=== PATIENT | male | born 1975 | race Caucasian/White ===

== ENCOUNTER → 2020-08-11 13:56 | Outpatient (CLI) | payer BC, SELFPAY ==
--- NOTE | ~2020-08-11 | XR_ITS ---
EXAMINATION: XR lumbar spine 2-3V EXAM DATE: 08/11/2020 14:22 INDICATION: Chronic pain syndrome. TECHNIQUE: Lumber spine frontal, lateral, lateral L5-S1 projections for interpretation. Comparison is made to prior examination from 06/26/2017. FINDINGS: Moderate to severe disc disease L4-S1. There is moderate L4-5 and L5-S1 facet arthropathy, mild to moderate above this level. Mild to moderate disc disease at L1-2, mild at L2-3 and L3-4. The re is approximately 2 mm retrolisthesis at all lumbar levels. Mild lumbar levoscoliosis. Sacrum, sacr oiliac joints, sacral arcuate lines are intact. Paraspinal soft tissue is unremarkable. IMPRESSION: 1. L4-S1 moderate to severe disc disease. 2. Moderate lower lumbar facet arthropathy. 3. Mild levoscoliosis. Reviewed, dictated and finalized at location A.
--- NOTE | ~2020-08-11 | XR_ITS ---
XR cervical spine 4-5V DATE: 08/11/2020 14:22 INDICATION: Chronic neck pain TECHNIQUE: Standing AP, lateral, swimmer's, open-mouth views COMPARISON: 07/18/2014 cervical spine FINDINGS: There is reversal of cervical curvature. There is mild dextroscoliosis of the cervical and upper thoracic spine. There is moderate degenerative disc disease at C3-4. There is moderately severe degenerative disc disease at C4-5, C5-6 and C6-7, with prominent posterior spurring at C4-5 and C6-7. Uncovertebral joint spurring is noted at C4-5, C5-6 and C6-7 in particular. C1 and C2 are normally aligned and the odontoid process is intact. No fracture or dislocation or lock ed facet or prevertebral soft tissue swelling. Incidentally noted is azygos lobe, normal variant. IMPRESSION: Reversal cervical curvature and mild dextroscoliosis Multilevel degenerative disc disease and uncovertebral joint spurring of the mid and lower cervical s pine, increased in severity since 07/18/2014 Reviewed, dictated and finalized at location A. IMPRESSION: Reversal cervical curvature and mild dextroscoliosis Multilevel degenerative disc disease and uncovertebral joint spurring of the mi d and lower cervical spine, increased in severity since 07/18/2014
== END ==
PROVIDERS: PCP Internal Medicine; Visit Provider Pain Medicine Interventional Pain Medicine
DX: M54.12 Radiculopathy, cervical region (principal); G89.4 Chronic pain syndrome; Z13.89 Encounter for screening for other disorder; M51.37 Other intervertebral disc degeneration, lumbosacral region; M50.30 Other cervical disc degeneration, unspecified cervical region
CPT/HCPCS: 72050; 72100

== ENCOUNTER → 2020-09-16 15:23 | Outpatient (CLI) | payer BC, SELFPAY ==
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
== END ==
PROVIDERS: Visit Provider Pain Medicine Interventional Pain Medicine
DX: M47.22 Other spondylosis with radiculopathy, cervical region (principal); Z13.89 Encounter for screening for other disorder
CPT/HCPCS: 72141

== ENCOUNTER → 2021-12-16 10:27 | Outpatient (CLI) | payer BC, SELFPAY ==
--- NOTE | ~2021-12-16 | XR_ITS ---
EXAMINATION: XR foot RT min 3V DATE: 12/16/2021 10:57 INDICATION: Lump and pain of the right foot TECHNIQUE: Dorsoplantar, lateral, and 2 oblique views of the right foot were obtained. COMPARISON: None. FINDINGS: Bone alignment is normal. There is no acute fracture. There appears to be an old healed fra cture of the fourth proximal phalanx. There is mild osteoarthritis at the first metatarsophalangeal j oint. No definite correlate is identified for the patient's reported foot pain. IMPRESSION: 1. No acute osseous abnormality. Reviewed, dictated and finalized at location B.
== END ==
PROVIDERS: PCP Family Medicine; Visit Provider Podiatrist Foot & Ankle Surgery
DX: M79.671 Pain in right foot (principal)
CPT/HCPCS: 73630

== ENCOUNTER → 2021-12-16 10:31 | Outpatient (CLI) | payer BC, SELFPAY ==
--- NOTE | ~2021-12-16 | XR_ITS ---
EXAMINATION:XR cervical spine 4-5V DATE: 12/16/2021 11:04 INDICATION: Neck pain TECHNIQUE: AP, lateral, lateral swimmers and odontoid views of the cervical spine are provided. COMPARISON: 08/11/2020 FINDINGS: There are 2 mm of stable retrolisthesis of C4 on C5. The vertebral body heights are normal. There is straightening of the cervical spine. The odontoid is intact. No fracture is identified. The re is unchanged moderate loss of intervertebral disc space height at C4-5, C5-6, and C6-7. Prevertebr al soft tissues are normal. Small degenerative osteophytes project from the anterior endplates of mul tiple vertebral bodies. There is moderate multilevel facet and uncovertebral joint osteoarthritis. IMPRESSION: 1. Moderate cervical spondylosis without acute findings or significant interval change. Reviewed, dictated and finalized at location B.
--- NOTE | ~2021-12-16 | XR_ITS ---
EXAMINATION: XR lumbar spine 2-3V DATE: 12/16/2021 11:04 INDICATION: Low back pain TECHNIQUE: Anteroposterior and lateral views of the lumbar spine, and cone-down lateral view of the l umbosacral junction were obtained. COMPARISON: 08/11/2020 FINDINGS: Bone alignment is normal. There is no fracture. There is unchanged severe loss of intervert ebral disc space height at L4-5 and L5-S1. The vertebral body heights are normal. There is moderate f acet osteoarthritis of the lower lumbar spine. Small degenerative osteophytes project from the anteri or endplates of multiple vertebral bodies. IMPRESSION: 1. Severe lumbar spondylosis without acute findings or significant interval change. Reviewed, dictated and finalized at location B. IMPRESSION: 1. Severe lumbar spondylosis without acute findings or significant interval tiana nge.
== END ==
PROVIDERS: PCP Family Medicine; Visit Provider Pain Medicine Interventional Pain Medicine
DX: M47.23 Other spondylosis with radiculopathy, cervicothoracic region (principal); M47.892 Other spondylosis, cervical region; Z13.89 Encounter for screening for other disorder; M47.896 Other spondylosis, lumbar region
CPT/HCPCS: 72050; 72100

== ENCOUNTER 2023-08-03 10:23 | Outpatient (CLI) | payer OTHER, SELFPAY ==
--- NOTE | ~2023-08-03 | XR_ITS ---
Cervical Spine: AP, lateral, open-mouth views Clinical History: Pain Findings: There is mild reversal of the normal cervical lordosis. There is minimal grade 1 anterolist hesis of C4 over C5. There is moderate degenerative disc narrowing from C4 through C7. Mild facet hal nt degenerative changes are present. Pre-vertebral soft tissues are unremarkable. Impression: Degenerative spondylosis, as above. Reviewed, dictated and finalized at location . Impression: Degenerative spondylosis, as above.
--- NOTE | ~2023-08-03 | XR_ITS ---
EXAMINATION: XR lumbar spine 2-3V DATE: 08/03/2023 10:48 INDICATION: Lumbar radiculopathy. TECHNIQUE: 3 views of lumbar spine were obtained. COMPARISON: Lumbar spine radiographs 12/16/2021 FINDINGS: There is 6 degrees levocurvature of lumbar spine. Vertebral body heights are normal. There is mildly decreased disc height at L1-L2 and L3-L4 and severely decreased disc height at L4-L5 and L5 -S1. There is multilevel severe facet joint osteoarthritis. IMPRESSION: 1. Severe lumbar spondylosis, stable from 12/16/2021. Reviewed, dictated and finalized at location E.
== END 2023-08-03 10:24 ==
PROVIDERS: PCP Family Medicine; Visit Provider Pain Medicine Interventional Pain Medicine
DX: M47.23 Other spondylosis with radiculopathy, cervicothoracic region (principal); M47.812 Spondylosis without myelopathy or radiculopathy, cervical region; Z13.89 Encounter for screening for other disorder; M47.896 Other spondylosis, lumbar region
CPT/HCPCS: 72050; 72100